=== PATIENT | female | born 1980 | race Two or more races ===

== ENCOUNTER → 2018-07-30 08:25 | Outpatient (CLI) | payer OTHER | END | disposition home or self-care (01) | LOC: LAB 07:12 | DX: Z13.6 Encounter for screening for cardiovascular disorders (principal); D50.8 Other iron deficiency anemias; E83.51 Hypocalcemia; D68.8 Other specified coagulation defects; N83.209 Unspecified ovarian cyst, unspecified side; E03.8 Other specified hypothyroidism; N39.0 Urinary tract infection, site not specified; E78.2 Mixed hyperlipidemia ==

== ENCOUNTER 2018-08-13 07:00 | Inpatient (IN) | payer OTHER ==
[2018-08-18] MEDS ORDERED: TYLENOL325 MG PO (11:09)
[2018-08-18] MEDS ORDERED: OXYC1TAB9 PO (11:09)
== END 2018-08-18 12:34 | DRG 743 ==
LOC: O/R 08-16 05:54 → SURH 08-16 07:00 → OB/GYN 08-16 14:40
PROVIDERS: Specialist; Urology
PROC: 0UPD7HZ Removal of Contraceptive Device from Uterus and Cervix, Via Natural or Artificial Opening (ICD-10-PCS; principal; 2018-08-16 07:00)
PROC: 0UB90ZZ Excision of Uterus, Open Approach (ICD-10-PCS; principal; 2018-08-16 07:00)
PROC: 0T788DZ Dilation of Bilateral Ureters with Intraluminal Device, Via Natural or Artificial Opening Endoscopic (ICD-10-PCS; 2018-08-16 07:00)
DX: D25.9 Leiomyoma of uterus, unspecified (principal)